=== PATIENT | female | born 1950 | race African-American/Black ===

== ENCOUNTER 2019-01-19 20:04 | Emergency (ER) | payer OTHER ==
[~2019-01-19] VITALS: Ht 154.9 cm; Wt 70.9 kg
[2019-01-19] MEDS ORDERED: ESTRACE2 MG PO (20:07)
[2019-01-19] MEDS ORDERED: PAXIL20 MG PO (20:07)
[2019-01-19] MEDS ORDERED: NEURONTIN 300300 MG PO (20:08)
[2019-01-19] MEDS ORDERED: ROBAXIN500 MG PO (21:54)
== END 2019-01-19 22:20 | disposition home or self-care (01) ==
LOC: D.ER 20:04
DX: S16.1XXA Strain of muscle, fascia and tendon at neck level, initial encounter (principal); V49.9XXA Car occupant (driver) (passenger) injured in unspecified traffic accident, initial encounter; Y93.89 Activity, other specified; Y92.410 Unspecified street and highway as the place of occurrence of the external cause; S70.02XA Contusion of left hip, initial encounter; M79.18 Myalgia, other site